=== PATIENT | male | born 1960 | race Caucasian/White ===

== ENCOUNTER 2016-11-22 06:13 | Inpatient (IN) ==
--- NOTE | 2016-11-21 20:46 | Discharge Summary ---
<Maddison Fitch - Last Filed: 11/21/16 20:42> Date of Encounter: 11/21/16 - Discharge Diagnosis (1) Loosening of knee joint prosthesis Priority: Primary Status: Acute (2) HTN (hypertension) Priority: Secondary Status: Chronic Qualifiers: Hypertension type: secondary to other renal disorders Qualified Code(s): I15.1 - Hypertension secondary to other renal disorders; N28.89 - Other specified disorders of kidney and ureter (3) Hyperlipidemia Priority: Secondary Status: Chronic Qualifiers: Hyperlipidemia type: unspecified Qualified Code(s): E78.5 - Hyperlipidemia , unspecified - Discharge Medications Home Medications: Metoprolol [Lopressor] 25 mg PO BID 05/12/15 [History] Aspirin Enteric Coated [Aspirin EC] 325 mg PO DAILY #21 tablet.dr 11/21/16 [Rx] OxyCODONE Immed Rel [Roxicodone 5 MG] 5 - 10 mg PO Q6HR PRN #40 tablet 11/21/16 [Rx] Aspirin Enteric Coated [Aspirin EC] 81 mg PO DAILY 11/22/16 [History] Celecoxib [Celebrex] 200 mg PO BID 11/22/16 [History] Ibuprofen [Motrin] 800 mg PO Q8HR PRN 11/22/16 [History] Tadalafil [Cialis] 5 mg PO DAILY 11/22/16 [History] Allergies/Adverse Reactions: Allergies No Known Allergies Allergy (Verified 11/22/16 07:09) Primary care physician: Gabbi Clark DO - Patient Status Disposition: Transfer Inpatient Rehab Fac Condition: Good - Discharge Instructions Follow Up With: Gabbi Clark DO [Primary Care Provider] - - Hospital Course Hospital course: Mr. Neri is a 56 year old male - Time Spent with Patient Total time spent providing and/or coordinating discharge services: <Sammy Guidry - Last Filed: 11/24/16 10:22> Date of Encounter: 11/24/16 Time of Encounter: 10:21 - Discharge Diagnosis (1) HTN (hypertension) Priority: Secondary Status: Chronic Qualifiers: Hypertension type: secondary to other renal disorders Qualified Code(s): I15.1 - Hypertension secondary to other renal disorders; N28.89 - Other specified disorders of kidney and ureter (2) Hyperlipidemia Priority: Secondary Status: Chronic Qualifiers: Hyperlipidemia type: unspecified Qualified Code(s): E78.5 - Hyperlipidemia , unspecified (3) Loosening of knee joint prosthesis Priority: Primary Status: Acute Qualifiers: Encounter type: subsequent encounter Qualified Code(s): T84.038D - Mechanical loosening of other internal prosthetic joint, subsequent encounter; Z96.659 - Presence of unspecified artificial knee joint (4) Acute blood loss anemia Priority: Primary Status: Acute Primary care physician: Gabbi Clark DO - Patient Status Functional capacity at discharge: uses cane/walker Overall status at discharge: patient is progressing back to baseline - Hospital Course Hospital course: Mr. Neri is a 56 year old male The patient had an uneventful postoperative course. They received antibiotics and physical therapy and were discharged in stable condition. There will follow -up in the office in 2 weeks. Aspirin DVT prophylaxis - Time Spent with Patient Total time spent providing and/or coordinating discharge services:
[2016-11-22] MEDS ORDERED: CeFAZolin Pre 2,000 MG/100 ML 2,000 MG/100 ML BAG IVPB ONE (06:28)
[2016-11-22] MEDS ORDERED: Ringers Solution, Lactated 1,000 ML IVC SCH (06:30)
--- NOTE | 2016-11-22 06:30 | History & Physical Report ---
Date of Encounter: 11/22/16 Time of Encounter: 06:30 24 Hour HP Update - Instructions Instructions: If the History and Physical is less than 30 days old and was completed prior to A.M. admission and or procedure and has NOT been updated on calendar day of procedure please complete this update prior to performing procedure. - Update Patient reports changes in Medical Condition: No Changes in examination, assessment, or condition: No Changes in Medication: No Preop tests/diagnostics Reviewed: Yes Surgery Remains Indicated: Yes Consent for Planned Operative Procedure(s) Verified: Yes - Pre-Operative Checklist Preoperative Checklist Indicated: No Prophylactic Antibiotic Ordered: Yes Is VTE Prophylaxis Indicated?: Yes
--- NOTE | 2016-11-22 06:56 | Anesthesia Evaluation PreOp ---
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 05/07/15 [Rx] Metoprolol [Lopressor] 25 mg PO BID 05/12/15 [History] Simvastatin [Zocor] 20 mg PO HS 05/12/15 [History] Aspirin Enteric Coated [Aspirin EC] 325 mg PO DAILY #21 tablet. 11/21/16 [Rx] OxyCODONE Immed Rel [Roxicodone 5 MG] 5 - 10 mg PO Q6HR PRN #40 tablet 11/21/16 [Rx] Allergies No Known Allergies Allergy (Unverified 05/05/15 08:16) - Meds/Allergy Pre-op Review Medications Reviewed: Yes Allergies Reviewed: Yes Beta Blockers on Current Med List: Yes If Beta Blockers taken, Date/Time (Last Dose taken): 11/22/2016 at 0500 Anesthesia Results - Labs Laboratory Tests 11/16/16 11/16/16 11/16/16 16:45 16:45 16:45 WBC 8.4 Hgb 13.5 Hct 39.8 Plt Count 228 PT 11.2 INR 1.0 APTT 27.1 Sodium 132 L Potassium 3.6 BUN 13 Creatinine 0.88 - Imaging EKG: report reviewed (11/16/2016 SR) Additional studies: 09/21/2010 Stress CONCLUSIONS: ==> Adequate exercise stress test based on maximum HR achieved. ==> No chest pain. ==> Negative ECG for ischemia. ==> The exercise ECG was negative for ischemia. ==> The patient demonstrated rare PVCs during the exam. ==> The patient experienced no symptoms during the exam. ==> The patient demonstrated hypertensive blood pressure response to exercise. ==> The patient's exercise tolerance was good with 10 mins of activity. ==> The left ventricle does not appear dilated ==> Segmental ventricular function reveals no wall motion abnormalities ==> The gated ejection fraction was calculated at 55% ==> The nuclear exam reveals no evidence of stress-induced ischemia. ==> The nuclear exam reveals evidence of mild inferior fixed decreased uptake worst at rest than at stress suggestive of attenuation artifact.. ==> Clinical correlation suggested. 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
[2016-11-22] MEDS ORDERED: *HR* Midazolam HCl 2 MG/2 ML VIAL ONE (06:59)
[2016-11-22] MEDS ORDERED: *HR* Propofol 200 MG/20 ML VIAL IVP ONE (06:59)
[2016-11-22] MEDS ORDERED: Lidocaine -MPF 2% 2 ML VIAL ONE (06:59)
[2016-11-22] MEDS ORDERED: *HR* FentaNYL (PF) 100 MCG/2 ML VIAL ONE (06:59)
[2016-11-22] MEDS ORDERED: Ondansetron 4 MG/2 ML VIAL ONE (06:59)
[2016-11-22] MEDS ORDERED: Dexamethasone 4 MG/ML VIAL ONE (06:59)
[2016-11-22] MEDS ORDERED: ROPIVACAINE HCL/PF 0.5% 30 ML VIAL ONE (07:27)
--- NOTE | 2016-11-22 07:55 | Anesthesia Procedures ---
Date of Encounter: 11/22/16 Time of Encounter: 07:30 Procedures: Anesthesia - Nerve Block Procedure Date: 11/22/16 Time: 07:30 Checklist: Correct Patient Identifier, Correct procedure, History checked Correct side: Right Blood Thinner: No Monitor Applied: EKG, BP, Pulse Oximetry Supplemental Oxygen via Nasal Cannula (L/min): 2 Sedation: Versed (mg): 2 Sedation: Fentanyl (mcg): 100 Pre-op Neuro Deficits: No Block Type: Femoral (bilateral) Catheter placed: No Sterile Technique: Yes Ultrasound used: Yes Anatomy identified: Yes Visual spread of Local: Yes Neuro Stimulation: Yes Nerve Stimulator Range: 0.2 - 0.4 mA Blood on Needle Aspiration: No Smooth Injection of Local: Yes Pain with Injection of Local: No Prep: Chlorhexadine Needle: 22 x 50 mm Stimuplex Local: Ropivacaine (0.5% ) Volume (cc): 60 Number of Attempts: 1 Complications: None/effective block Vitals: vss
[2016-11-22] MEDS ORDERED: *HR* Succinylcholine 200 MG/10 ML VIAL IVP ONE (09:17)
[2016-11-22] MEDS ORDERED: *HR* Phenylephrine 10 MG/ML VIAL ONE (09:56)
--- NOTE | 2016-11-22 10:33 | Orthopedic Operative Note ---
Date of procedure: 11/22/16 Pre-op diagnosis: Aseptic loosening bilateral total knees Post-op diagnosis: same Procedure: Procedure: Bilateral revision total knee Estimated blood loss: 800 mL Hardware: Metal and polyethylene replacement. Biomet SSK femur: Bilateral 70 femur 20 x 120 stem Tibia 360: Bilateral 83 large wing 18 x 80 smooth stem Constrained Teresita: 22 bilateral Exam Under anesthesia: Full flexion and extension no varus valgus instability no erythema well-healed incisions Procedural Notes: Gross loosening of bilateral tibias, loosening of bilateral femurs Operative procedure: The patient was brought to the operating room and placed on the operating room table. After general anesthesia was administered the operative knee was examined. Findings were noted in the exam under anesthesia. The operative extremity was prepped and draped in sterile surgical fashion. The patient received IV antibiotics prior to skin incision. The dictation that will follow will be for both knees and a variations will be highlighted surgery began with the left knee followed by the right knee. A standard midline incision was made centered over the patella through the old incision. The incision was made through the skin and subcutaneous tissue. A medial parapatellar tendon approach was performed. Care was taken to preserve tissue along the medial aspect of the patella. And to protect the patella tendon. The deep MCL was released off the medial tibia. The infra patella fat pad was excised. Fluid was encountered this was normal joint fluid, Cultures were obtained and gram was negative for both knees for bacteria. Minimal white cells . The knee was brought into flexion the poly-was removed. The interface between the patient's femoral component and distal femur were disrupted with a osteotome and oscillating saw, this was loose for both knees. Femoral component was removed removed without significant bone loss. Attention was then turned to the tibial component. The same technique was used to remove the tibial component by disrupting the interface between the patient's tibial component and the patients proximal tibia. The tibial component was loose, was removed without significant bone loss. The tibia was sized to bilaterally to a 83 was reamed up to a 18 x 100. Trial had good fit and fixation with a large wing. The femur was sized to a 70, was reamed up to a 20 x 120 The finishing guide was seated and the box cut was made. The trial had good fit and fixation. Both trial components were seated and the 22 constrained Teresita was seated and secured. The knee had full flexion and full extension with no instability bilaterally. Patella was well fixed and had excellent patella tracking bilaterally. The trial components were removed. The knee sat for 2 minutes with a Betadine saline solution. It was irrigated out with 2 L of pulse irrigation. The components were assembled on the back table, the tibia cemented first followed by the femur. The 22 constrained liner was seated and secure. The knee was brought to full extension while the cement hardened. Patella tracked centrally. After the cement hardened the knee was irrigated out again. The extensor mechanism was closed with a running #2 Fiberwire suture and a running #2 PDS suture. The deep tissue was irrigated and closed deep with #1 PDS suture superficially with 0 PDS suture. The skin was closed with skin ean. The patient was placed in a sterile dressing and postoperative brace. They were extubated and transferred to recovery room in stable condition. Anesthesia: LISSETH Surgeon: Sammy Guidry Quality Assurance Inspector: Maddison Fitch Condition: stable Disposition: PACU
[2016-11-22] MEDS ORDERED: *HR* HYDROmorphone (PF) 1 MG/ML SYRINGE ONE ×2 (11:12→11:49)
[2016-11-22] MEDS ORDERED: Acetaminophen IV 1,000 MG/100 ML INFUS..BTL ONE (11:14)
[2016-11-22] MEDS: *HR* HYDROmorphone (PF) 1 MG/ML SYRINGE IVP PRN ×2 (11:15→11:35)
[2016-11-22 11:34] LABS: Hematocrit 32.2 % (37.5-50.1)
[2016-11-22 11:36] LABS: Hemoglobin 10.5 g/dL (12.9-16.9)
--- NOTE | 2016-11-22 12:02 | Anesthesia Evaluation Post Op ---
Date of Encounter: 11/22/16 Time of Encounter: 12:01 - Vital Signs Vital Signs: Vital Signs/O2 Sat, Most Current Temp Pulse Resp BP Pulse Ox 97.4 F L 57 16 107/85 100 11/22/16 11:40 11/22/16 11:50 11/22/16 11:50 11/22/16 11:50 11/22/16 11:50 - Lungs Lungs: Clear Ascult./Percussion - Airway Airway: Non-obstructed - Cardiovascular Regular Rate - Mental Status Mental Status: Alert & Oriented, Answers Appropriately - Pain Pain Scale: 4 Pain Scale used: Numeric (1 - 10) - Nausea Vomiting Nausea Vomiting: Not Present - Hydration Hydration: NPO, Has not voided - Discharge PostOp Status: Transfer Patient to floor
[2016-11-22] MEDS ORDERED: *HR* OxyCODONE Immed Rel 5 MG TABLET PO PRN (12:17)
[2016-11-22] MEDS ORDERED: MOM Conc 10 ML UD.LIQ PO PRN (12:17)
[2016-11-22] MEDS ORDERED: Naloxone 0.4 MG/ML INJ IVP PRN (12:17)
[2016-11-22] MEDS ORDERED: Temazepam 15 MG CAPSULE PO PRN (12:17)
[2016-11-22] MEDS ORDERED: *HR* HYDROmorphone (PF) 1 MG/ML SYRINGE IVP PRN (12:17)
[2016-11-22] MEDS ORDERED: Sennosides 8.6 MG TABLET PO PRN (12:17)
[2016-11-22] MEDS ORDERED: Ondansetron 4 MG/2 ML VIAL IVP PRN (12:17)
[2016-11-22] MEDS: *HR* OxyCODONE Immed Rel 5 MG TABLET PO PRN ×2 (13:21→19:39)
[2016-11-22] MEDS: ceFAZolin 2,000 MG in D5% in Water 100 ML IVPB SCH ×2 (13:21→20:22)
[2016-11-22] MEDS ORDERED: *HR* Enoxaparin 30 MG/0.3 ML SYRINGE SQ SCH (18:00)
[2016-11-22] MEDS: (Tadalafil [Cialis] 5 MG) PO SCH (19:33)
[2016-11-22] MEDS: *HR* Enoxaparin 30 MG/0.3 ML SYRINGE SQ SCH (19:36)
[2016-11-22] MEDS: Celecoxib 200 MG CAPSULE PO SCH ×2 (19:36→19:37)
[2016-11-22] MEDS: Aspirin Enteric Coated 81 MG Tablet PO SCH (19:36)
[2016-11-22] MEDS: Ringers Solution, Lactated 1,000 ML IVC SCH (22:48)
[2016-11-23] MEDS: *HR* OxyCODONE Immed Rel 5 MG TABLET PO PRN ×6 (01:11→21:50)
[2016-11-23] MEDS: *HR* Enoxaparin 30 MG/0.3 ML SYRINGE SQ SCH ×2 (05:11→17:45)
--- NOTE | 2016-11-23 06:34 | Orthopedics Progress Note ---
Date of Encounter: 11/23/16 Time of Encounter: 06:34 - Assessment and Plan (1) HTN (hypertension) Current Visit: No Status: Chronic Qualifiers: Hypertension type: secondary to other renal disorders Qualified Code(s): I15.1 - Hypertension secondary to other renal disorders; N28.89 - Other specified disorders of kidney and ureter (2) Hyperlipidemia Current Visit: No Status: Chronic Qualifiers: Hyperlipidemia type: unspecified Qualified Code(s): E78.5 - Hyperlipidemia , unspecified (3) Loosening of knee joint prosthesis Current Visit: Yes Status: Acute Qualifiers: Encounter type: subsequent encounter Qualified Code(s): T84.038D - Mechanical loosening of other internal prosthetic joint, subsequent encounter; Z96.659 - Presence of unspecified artificial knee joint Subjective Interval history: Patient was seen this morning doing well without complaints. Afebrile vital signs stable. Operative extremity: Neurovascularly intact Dressing clean dry and intact Calves nontender Assessment and plan: Continue with postoperative care Hematocrit 32 Objective Vital signs: Vital Signs Temp Pulse Resp BP Pulse Ox 11/23/16 03:27 98.8 F 74 14 112/65 95 11/22/16 23:30 98.6 F 78 14 99/64 96 11/22/16 19:53 98.6 F 88 16 147/84 99 11/22/16 15:30 90/60 11/22/16 15:14 97.7 F 91 20 90/60 99 11/22/16 14:26 99 11/22/16 14:14 97.5 F L 62 20 111/68 100 11/22/16 13:16 97.6 F 64 20 110/70 100 11/22/16 12:51 97.7 F 56 20 102/68 100 11/22/16 12:17 98.8 F 62 24 103/67 99 11/22/16 12:10 97.8 F 58 16 109/97 100 11/22/16 12:00 57 16 108/67 100 11/22/16 11:50 57 16 107/85 100 11/22/16 11:40 97.4 F L 52 16 106/67 100 11/22/16 11:30 53 16 101/65 98 11/22/16 11:20 54 18 73/49 100 11/22/16 11:10 97.1 F L 65 18 119/37 100 11/22/16 07:46 57 131/88 98 Intake and Output 11/22/16 11/22/16 11/23/16 15:59 23:59 07:59 Intake Total 100 / 100 500 / 500 1050 / 1050 Output Total 950 / 950 1100 / 1100 1350 / 1350 Balance -850 / -850 -600 / -600 -300 / -300 Intake: IV Fluids 100 / 100 100 / 100 Ancef Premix 2,000 MG/100 100 / 100 ML 2,000 mg In 100 ml @ 200 mls/hr IVPB PREOP ONE Rx#:[id number] Ancef 2,000 MG In 100 / 100 Dextrose 5% 100 ML @ 200 mls/hr IVPB Q8H REJI Rx#: [id number] Oral 400 / 400 1050 / 1050 Output: Urine 150 / 150 1100 / 1100 1350 / 1350 Estimated Blood Loss 800 / 800 Other: Weight 103.6 kg Patient Weight 11/23/16 23:59 Weight 103.6 kg - Labs CBC & BMP: 11/22/16 11:24 Labs: Abnormal lab results Hgb 10.5 g/dL (12.9-16.9) L D 11/22/16 11:24 Hct 32.2 % (37.5-50.1) L 11/22/16 11:24 - VTE Documentation of Mechanical Device: Venous foot pump, device Consult Discharge Plan - Plan Referrals: Gabbi Clark DO [Primary Care Provider] -
[2016-11-23 06:36] LABS: Hematocrit 26.9 % (37.5-50.1)
[2016-11-23 06:37] LABS: Hemoglobin 8.9 g/dL (12.9-16.9)
[2016-11-23 06:49] LABS: BUN/Creatinine Ratio 19 (6-26); Blood Urea Nitrogen 15 mg/dL (8-26); Calcium 8.3 mg/dL (8.6-10.8); Carbon Dioxide 28 mEq/L (19-29); Chloride 101 mEq/L (98-109); Glucose 147 mg/dL (70-99); Osmolality,Calculated 282 (280-300); Potassium 4.3 mEq/L (3.5-4.5); Sodium 134 mEq/L (136-145); eGFR For African Americans > 60 (> 60); eGFR For Non-African Americans > 60 (> 60)
[2016-11-23] MEDS ORDERED: Furosemide 20 MG/2 ML VIAL IVP ONE ×2 (07:05→17:42)
[2016-11-23] MEDS: Celecoxib 200 MG CAPSULE PO SCH ×2 (09:16→21:50)
[2016-11-23] MEDS: (Tadalafil [Cialis] 5 MG) PO SCH (09:17)
[2016-11-23] MEDS: Aspirin Enteric Coated 81 MG Tablet PO SCH (09:17)
[2016-11-23] MEDS ORDERED: 0.9 % Sodium Chloride 250 ML ONE ×2 (10:48→14:00)
[2016-11-23] MEDS: Ringers Solution, Lactated 1,000 ML IVC SCH (18:07)
[2016-11-23 20:44] LABS: Hematocrit 31.3 % (37.5-50.1)
[2016-11-23 20:45] LABS: Hemoglobin 10.6 g/dL (12.9-16.9)
[2016-11-24] MEDS: *HR* Enoxaparin 30 MG/0.3 ML SYRINGE SQ SCH (04:28)
[2016-11-24] MEDS: *HR* OxyCODONE Immed Rel 5 MG TABLET PO PRN ×2 (04:28→09:21)
[2016-11-24 06:26] LABS: Hematocrit 29.3 % (37.5-50.1); Hemoglobin 9.8 g/dL (12.9-16.9)
[2016-11-24 06:47] LABS: BUN/Creatinine Ratio 14 (6-26); Blood Urea Nitrogen 12 mg/dL (8-26); Calcium 8.3 mg/dL (8.6-10.8); Carbon Dioxide 30 mEq/L (19-29); Chloride 98 mEq/L (98-109); Glucose 110 mg/dL (70-99); Osmolality,Calculated 276 (280-300); Potassium 3.8 mEq/L (3.5-4.5); Sodium 133 mEq/L (136-145); eGFR For African Americans > 60 (> 60); eGFR For Non-African Americans > 60 (> 60)
--- NOTE | 2016-11-24 06:53 | Orthopedics Progress Note ---
Date of Encounter: 11/24/16 Time of Encounter: 06:53 - Assessment and Plan (1) HTN (hypertension) Current Visit: No Status: Chronic Qualifiers: Hypertension type: secondary to other renal disorders Qualified Code(s): I15.1 - Hypertension secondary to other renal disorders; N28.89 - Other specified disorders of kidney and ureter (2) Hyperlipidemia Current Visit: No Status: Chronic Qualifiers: Hyperlipidemia type: unspecified Qualified Code(s): E78.5 - Hyperlipidemia , unspecified (3) Loosening of knee joint prosthesis Current Visit: Yes Status: Acute Qualifiers: Encounter type: subsequent encounter Qualified Code(s): T84.038D - Mechanical loosening of other internal prosthetic joint, subsequent encounter; Z96.659 - Presence of unspecified artificial knee joint (4) Acute blood loss anemia Current Visit: No Status: Acute Subjective Interval history: Patient was seen this morning doing well without complaints. Afebrile vital signs stable. Operative extremity: Neurovascularly intact Dressing clean dry and intact Calves nontender Assessment and plan: Continue with postoperative care hb 9.8 Objective Vital signs: Vital Signs Temp Pulse Resp BP Pulse Ox 11/23/16 23:27 98.9 F 88 16 128/77 96 11/23/16 19:13 99.6 F 91 15 130/74 98 11/23/16 17:10 98.1 F 78 18 125/81 94 11/23/16 15:18 98.2 F 86 15 113/69 98 11/23/16 14:23 98.1 F 79 18 113/65 97 11/23/16 14:08 98.5 F 84 17 118/65 98 11/23/16 13:30 98.2 F 85 18 111/70 95 11/23/16 11:18 97.5 F L 89 18 118/67 98 11/23/16 11:03 98.4 F 89 18 127/66 98 Intake and Output 11/23/16 11/23/16 11/24/16 15:59 23:59 07:59 Intake Total 1550 / 1550 780 / 780 Output Total 2300 / 2300 1400 / 1400 Balance 1550 / 1550 -1520 / -1520 -1400 / -1400 Intake: IV Fluids 910 / 910 0.9 % Sodium Chloride 250 10 / 10 ML [facility][id number] Lactated Ringers 1,000 ML 800 / 800 @ 75 mls/hr IVC .[id number] REJI Rx#:[id number] Oral 360 / 360 480 / 480 Blood Product 280 / 280 300 / 300 Rbcs Leuko Poor As-1 0 / 0 300 / 300 Unit [id number] Rbcs Leuko Poor As-1 280 / 280 Unit [id number] Output: Urine 2300 / 2300 1400 / 1400 Other: Meal Lunch Dinner Percent of Meal Consumed 100% 100% # Voids 4 Weight 104.1 kg Patient Weight 11/24/16 23:59 Weight 104.1 kg - Labs CBC & BMP: 11/24/16 05:24 11/24/16 05:24 Labs: Abnormal lab results Hgb 9.8 g/dL (12.9-16.9) L 11/24/16 05:24 Hct 29.3 % (37.5-50.1) L 11/24/16 05:24 Sodium 133 mEq/L (136-145) L 11/24/16 05:24 Carbon Dioxide 30 mEq/L (19-29) H 11/24/16 05:24 Glucose 110 mg/dL (70-99) H 11/24/16 05:24 Calculated Osmolality 276 (280-300) L 11/24/16 05:24 Calcium 8.3 mg/dL (8.6-10.8) L 11/24/16 05:24 - VTE Documentation of Mechanical Device: Venous foot pump, device Consult Discharge Plan - Plan Referrals: Gabbi Clark DO [Primary Care Provider] -
[2016-11-24 07:23] VITALS: BP 165/87
[2016-11-24] MEDS: Aspirin Enteric Coated 81 MG Tablet PO SCH (09:20)
[2016-11-24] MEDS: Celecoxib 200 MG CAPSULE PO SCH (09:20)
[2016-11-24] MEDS: (Tadalafil [Cialis] 5 MG) PO SCH (09:21)
== END 2016-11-24 11:54 | DRG 462 ==
LOC: SAMDAY 06:13 → 3NENU 12:15
PROVIDERS: ADMIT Orthopaedic Surgery; ATTEND Orthopaedic Surgery